=== PATIENT | female | born 1965 | race Caucasian/White ===

== ENCOUNTER 2019-08-27 08:36 | Emergency (ER) | payer MEDICAID, OTHER ==
[~2019-08-27] VITALS: Ht 157 cm; Wt 91.0 kg
[2019-08-27] MEDS ORDERED: LISI2.5T PO (08:50)
[2019-08-27] MEDS ORDERED: LEVO25TA2 PO (08:50)
[2019-08-27] MEDS ORDERED: METF-399 PO (08:50)
[2019-08-27] MEDS ORDERED: INSU100V6 SQ (08:50)
[2019-08-27] MEDS ORDERED: NS IV 1000 ML 1,000 ML IV SCH (09:00)
[2019-08-27 09:10] LABS: HEMOGLOBIN 13.2 G/DL (11.5-16.0); MEAN PLATELET VOLUME 9.7 FL (7.4-10.4); RED CELL DISTRIBUTION WIDTH 13.3 % (10.0-14.5); WHITE BLOOD COUNT 15.3 10^3/uL (4.3-11.0)
--- NOTE | 2019-08-27 09:21 | Diagnostic Imaging Report ---
PROCEDURE: CT head without contrast. TECHNIQUE: Multiple contiguous axial images were obtained through the brain without the use of intravenous contrast. Auto Exposure Controls were utilized during the CT exam to meet ALARA standards for radiation dose reduction. INDICATION: Altered mental status, lethargy. Comparison: None available. Findings: No hyperdense hemorrhage or space-occupying mass. No hydrocephalus or midline shift. The basilar cisterns are normal. Katz-white matter differentiation is well preserved. The mastoid air cells are clear. Paranasal sinuses are normal. No focal osseous abnormality of the calvarium. Impression: No acute intracranial process. Dictated by: Dictated on workstation # [id number]
[2019-08-27 09:26] LABS: CARBON DIOXIDE 22 MMOL/L (21-32); CHLORIDE 97 MMOL/L (98-107); POTASSIUM 3.8 MMOL/L (3.6-5.0); SODIUM 135 MMOL/L (135-145)
[2019-08-27 09:27] LABS: ALANINE AMINOTRANSFERASE 143 U/L (0-55); ALBUMIN 3.6 GM/DL (3.2-4.5); ALKALINE PHOSPHATASE 193 U/L (40-136); BILIRUBIN,TOTAL 0.2 MG/DL (0.1-1.0); BUN/CREATININE RATIO 19; CALCIUM 10.5 MG/DL (8.5-10.1); CREATININE SERUM 1.16 MG/DL (0.60-1.30); GFR ESTIMATED 49; GLUCOSE 113 MG/DL (70-105); MAGNESIUM 1.2 MG/DL (1.6-2.4); TOTAL PROTEIN 6.5 GM/DL (6.4-8.2)
[2019-08-27] MEDS ORDERED: GABA-486 PO (09:27)
[2019-08-27] MEDS ORDERED: BUSP5TAB59 PO (09:27)
--- NOTE | 2019-08-27 09:27 | Diagnostic Imaging Report ---
EXAMINATION: Chest 1 view HISTORY: Altered mental status COMPARISON: None available. FINDINGS: Patient is imaged in the lordotic position. Heart size is accentuated by positioning and portable technique. No pleural effusion or pneumothorax is seen. No edema or pneumonia. IMPRESSION: 1. Clear lungs. Dictated by: Dictated on workstation # [id number]
[2019-08-27] MEDS: MAGNESIUM 1 GM/100 ML IVPB 100 ML IV SCH ×2 (09:50→11:31)
--- OUTSIDE RECORDS SUMMARY | 2019-08-27 10:20 | XMS REPORT | Continuity of Care Document ---
Author Organization Unknown Address Unknown Phone Unavailable Allergies Active Description Code Type Severity Reaction Onset Reported/Identified Relationship to Patient Clinical Status Yes No Known Drug Allergies [id number] Drug Allergy Unknown N/A 08/27/2019 Medications There is no data. Problems There is no data. Procedures There is no data. Results Test Result Range Automated blood complete blood count (he mogram) panel - 08/27/19 08:40 Blood leukocytes automated count (number/volume) 15.3 10*3/uL 4.3-11.0 Blood erythrocytes automated count (number/volume) 4.46 10*6/uL 4.35-5.85 Venous blood hemoglobin measurement (mass/volume) 13.2 g/dL 11.5-16.0 Blood hematocrit (volume fraction) 38 % 35-52 Automated erythrocyte mean corpuscular volume 85 [ foz_us] 80-99 Automated erythrocyte mean corpuscular h emoglobin (mass per erythrocyte) 30 pg 25-34 Automated erythrocyte mean corpuscular h emoglobin concentration measurement (mass/volume) 35 g/dL 32-36 Automated erythrocyte distribution width ratio 13. 3 % 10.0- 14.5 Automated blood platelet count (count/volume) 280 10*3/uL 130-400 Automated blood platelet mean volume measurement 9.7 [foz_us] 7.4-10.4 Comprehensive metabolic panel - 08/27/19 08:40 Serum or plasma sodium measurement (moles/volume) 135 mmol/L 135-145 Serum or plasma potassium measurement (moles/volume) 3.8 mmol/L 3.6-5.0 Serum or plasma chloride measurement (moles/volume) 97 mmol/L 98-107 Carbon dioxide 22 mmol/L 21-32 Serum or plasma anion gap determination (moles/volume) 16 mmol/L 5-14 Serum or plasma urea nitrogen measurement (mass/volume ) 22 mg/dL 7-18 Serum or plasma creatinine measurement (mass/volume) 1.16 mg/dL 0.60-1.30 Serum or plasma urea nitrogen/creatinine mass ratio 19 NRG Serum or plasma creatinine measurement w ith calculation of estimated glomerular filtration rate 49 NRG Serum or plasma glucose measurement (mass/volume) 113 mg/dL 70-105 Serum or plasma calcium measurement (mass/volume) 10.5 mg/dL 8.5-10.1 Serum or plasma total bilirubin measurement (mass/volu me) 0.2 mg/dL 0.1-1.0 Serum or plasma alkaline phosphatase charisse surement (enzymatic activity/volume) 193 U/L 40-136 Serum or plasma aspartate aminotransfera se measurement (enzymatic activity/volume) 173 U/L 5-34 Serum or plasma alanine aminotransferase measurement (enzymatic activity/volume) 143 U/L 0-55 Serum or plasma protein measurement (mass/volume) 6.5 g/dL 6.4-8.2 Serum or plasma albumin measurement (mass/volume) 3.6 g/dL 3.2-4.5 CALCIUM CORRECTED 10.8 mg/dL 8.5-10.1 Magnesium - 08/27/19 08:40 Magnesium 1.2 mg/dL 1.6-2.4 Serum or plasma ethanol measurement (mas s/volume) - 08/27/19 08:40 Serum or plasma ethanol measurement (mass/volume) < mg/dL <10 Blood lactic acid measurement (moles/vol ume) - 08/27/19 09:40 Blood lactic acid measurement (moles/volume) 2.13 mmol/L 0.50-2.00 Encounters ACCT No. Visit Date/Time Discharge Status Pt. Type Provider Facility Loc./Unit Complaint [id number] 08/27/2019 08:40:[address] Emergency LÓPEZ CHRISTOPHER EPPS [facility] FS HYPOTENSION; WEAKNESS
[2019-08-27 11:09] LABS: BACTERIA,URINE TRACE /HPF; BILIRUBIN,URINE NEGATIVE (NEGATIVE); CLARITY,URINE CLEAR; COLOR,URINE YELLOW; GLUCOSE, URINE (UA) NEGATIVE (NEGATIVE); KETONES,URINE NEGATIVE (NEGATIVE); LEUKOCYTE ESTERASE ,URINE 2+ (NEGATIVE); NITRITE,URINE NEGATIVE (NEGATIVE); PH,URINE 5.5 (5-9); PROTEIN,URINE NEGATIVE (NEGATIVE); TRICHOMONAS,URINE FEW /HPF; WBC,URINE 50-100 /HPF
[2019-08-27 11:20] LABS: AMPHETAMINE SCREEN, URINE NEGATIVE (NEGATIVE); BARBITURATE SCREEN URINE NEGATIVE (NEGATIVE); BENZODIAZEPINES SCREEN URINE NEGATIVE (NEGATIVE); CANNABINOID SCREEN, URINE NEGATIVE (NEGATIVE); COCAINE SCREEN URINE NEGATIVE (NEGATIVE); METHADONE STAT NEGATIVE (NEGATIVE); METHAMPHETAMINE SCREEN URINE S NEGATIVE (NEGATIVE); OPIATE SCREEN URINE POSITIVE (NEGATIVE); OXYCODONE STAT NEGATIVE (NEGATIVE); PROPOXYPHENE STAT NEGATIVE (NEGATIVE); TRICYCLIC ANTIDEPRESSANTS SCRE POSITIVE (NEGATIVE)
[2019-08-27] MEDS ORDERED: CEPH-507 PO (11:42)
[2019-08-27] MEDS ORDERED: cefTRIAXone FOR IV USE 2,000 MG in WATER (STERILE) FOR INJECTION 20 ML IV ONE (11:45)
--- NOTE | 2019-08-27 11:50 | ED General ---
General Chief Complaint: Neuro-Stroke Like Symptoms Stated Complaint: HYPOTENSION; WEAKNESS Nursing Triage Note: Patient brought by EMS with concern of AMS, hypotension and hypoglycemia. Last known well time per EMS was 1200 on 08/26/2019. Family activated EMS today as patient had difficulty waking up. Nursing Sepsis Screen: No Definite Risk Source of Information: Patient History of Present Illness Date Seen by Provider: August 27, 2019 Time Seen by Provider: 08:40 Initial Comments Patient is a 53-year-old female presents with generalized weakness, malaise, dizziness confusion. Symptoms have been ongoing for the past several weeks to months. Patient is alert and oriented to person place and year but is confused to month. She denies headache, blurred vision, fever chills, cough, sore throat, chest pain, shortness of breath, urinary frequency urgency or dysuria. Reports chronic leg and back pain history of neuropathy. No focal neurologic deficits. States her blood sugars ran or than 400 yesterday but over normal today. She is compliant with her insulin and last took Lantus last evening. Last ate last evening at dinnertime. No other acute symptoms or complaints. Patient noted be hypotensive mildly tachycardic on ED arrival. Timing/Duration: 12 Hours, Changing Over Time, Intermittent Severity: Moderate Modifying Factors: improves with Rest Associated Systoms: Weakness Allergies and Home Medications Allergies Coded Allergies: No Known Drug Allergies (Unverified , 08/27/19) Home Medications Cephalexin 500 Mg Capsule, 500 MG PO TID Prescribed by: CHRISTOPHER LÓPEZ on 08/27/19 1142 Gabapentin 100 Mg Capsule, 100 MG PO Q8H, (Reported) Lisinopril 2.5 Mg Tablet, 2.5 MG PO DAILY, (Reported) Patient Home Medication List Home Medication List Reviewed: Yes Review of Systems Review of Systems Constitutional: see HPI EENTM: no symptoms reported Respiratory: no symptoms reported, see HPI Cardiovascular: no symptoms reported, see HPI Gastrointestinal: no symptoms reported Genitourinary: no symptoms reported Musculoskeletal: see HPI Skin: no symptoms reported Psychiatric/Neurological: Paresthesia Hematologic/Lymphatic: See HPI Immunological/Allergic: see HPI Past Omvcuda-Hdjxlh-Zpzhoc Hx Past Med/Social Hx: Reviewed Nursing Past Med/Soc Hx Patient Social History Alcohol Use: Denies Use Recreational Drug Use: No Smoking Status: Never a Smoker Recent Foreign Travel: No Contact w/Someone Who Travel: No Recent Infectious Disease Expo: No Physical Abuse: No Sexual Abuse: No Mistreated: No Fear: No Past Medical History Surgeries: Yes Section, Gallbladder, Orthopedic Respiratory: No Cardiac: Yes High Cholesterol, Hypertension Neurological: No Genitourinary: No Musculoskeletal: Yes Chronic Back Pain Endocrine: Yes Hypothyroidsim, Diabetes, Non-Insulin dep Integumentary: No Physical Exam Vital Signs Vital Signs - First Documented 08/27/19 08:42 Temp 36.1 Pulse 101 Resp 15 B/P (MAP) 123/70 (87) Pulse Ox 98 O2 Delivery Room Air Capillary Refill : Less Than 3 Seconds Height, Weight, BMI Height: '" Weight: lbs. oz. kg; 36.00 BMI Method: General Appearance: No Apparent Distress, WD/WN Eyes: Bilateral Eye Normal Inspection, Bilateral Eye PERRL, Bilateral Eye EOMI HEENT: PERRL/EOMI, Pharynx Normal, Pale Conjunctivae (R), Pharyngeal Erythema Neck: Full Range of Motion, Normal Inspection, Supple Respiratory: Chest Non Tender, Lungs Clear Cardiovascular: Regular Rate, Rhythm, No Edema Gastrointestinal: Normal Bowel Sounds, Non Tender, Soft Back: Normal Inspection, No CVA Tenderness Neurologic/Psychiatric: Alert, Oriented x3, manufacturers service representative II-XII Norm as Tested Skin: Normal Color, Warm/Dry Focused Exam Sepsis Stage: Ruled Out Possible Source: Genitouriary Lactate Level 08/27/19 09:40: Lactic Acid Level 2.13*H 08/27/19 11:40: Time of Focused Exam: 08:45 Lactic Acid Level Laboratory Tests Test 08/27/19 09:40 08/27/19 11:40 Lactic Acid Level 2.13 MMOL/L (0.50-2.00) *H Progress/Results/Core Measures Suspected Sepsis Recent Fever Within 48 Hours: No Infection Criteria Present: None New/Unexplained Altered Menta: Yes Sepsis Screen: No Definite Risk SIRS Temperature: Pulse: 101 Respiratory Rate: 15 Laboratory Tests 08/27/19 08:40: White Blood Count 15.3H Blood Pressure 123 /70 Mean: 87 08/27/19 09:40: Lactic Acid Level 2.13*H 08/27/19 11:40: Laboratory Tests 08/27/19 08:40: Creatinine 1.16, Platelet Count 280, Total Bilirubin 0.2 Results/Orders Lab Results Laboratory Tests Test 08/27/19 08:40 08/27/19 09:40 08/27/19 10:55 08/27/19 11:40 Range/Units White Blood Count 15.3 H 4.3-11.0 10^3/uL Red Blood Count 4.46 4.35-5.85 10^6/uL Hemoglobin 13.2 11.5-16.0 G/DL Hematocrit 38 35-52 % Mean Corpuscular Volume 85 80-99 FL Mean Corpuscular Hemoglobin 30 25-34 PG Mean Corpuscular Hemoglobin Concent 35 32-36 G/DL Red Cell Distribution Width 13.3 10.0-14.5 % Platelet Count 280 130-400 10^3/uL Mean Platelet Volume 9.7 7.4-10.4 FL Sodium Level 135 135-145 MMOL/L Potassium Level 3.8 3.6-5.0 MMOL/L Chloride Level 97 L 98-107 MMOL/L Carbon Dioxide Level 22 21-32 MMOL/L Anion Gap 16 H 5-14 MMOL/L Blood Urea Nitrogen 22 H 7-18 MG/DL Creatinine 1.16 0.60-1.30 MG/DL Estimat Glomerular Filtration Rate 49 BUN/Creatinine Ratio 19 Glucose Level 113 H 70-105 MG/DL Calcium Level 10.5 H 8.5-10.1 MG/DL Corrected Calcium 10.8 H 8.5-10.1 MG/DL Magnesium Level 1.2 L 1.6-2.4 MG/DL Total Bilirubin 0.2 0.1-1.0 MG/DL Aspartate Amino Transf (AST/SGOT) 173 H 5-34 U/L Alanine Aminotransferase (ALT/SGPT) 143 H 0-55 U/L Alkaline Phosphatase 193 H 40-136 U/L Total Protein 6.5 6.4-8.2 GM/DL Albumin 3.6 3.2-4.5 GM/DL Serum Alcohol < 10 <10 MG/DL Lactic Acid Level 2.13 *H 0.50-2.00 MMOL/L Urine Color YELLOW Urine Clarity CLEAR Urine pH 5.5 5-9 Urine Specific [place] 1.015 L 1.016-1.022 Urine Protein NEGATIVE NEGATIVE Urine Glucose (UA) NEGATIVE NEGATIVE Urine Ketones NEGATIVE NEGATIVE Urine Nitrite NEGATIVE NEGATIVE Urine Bilirubin NEGATIVE NEGATIVE Urine Urobilinogen 0.2 < = 1.0 MG/DL Urine Leukocyte Esterase 2+ H NEGATIVE Urine RBC (Auto) NEGATIVE NEGATIVE Urine RBC NONE /HPF Urine WBC 50-100 H /HPF Urine Squamous Epithelial Cells 5-10 /HPF Urine Crystals NONE /LPF Urine Bacteria TRACE /HPF Urine Casts NONE /LPF Urine Mucus NEGATIVE /LPF Urine Trichomonas FEW H /HPF Urine Culture Indicated YES Urine Opiates Screen POSITIVE H NEGATIVE Urine Oxycodone Screen NEGATIVE NEGATIVE Urine Methadone Screen NEGATIVE NEGATIVE Urine Propoxyphene Screen NEGATIVE NEGATIVE Urine Barbiturates Screen NEGATIVE NEGATIVE Ur Tricyclic Antidepressants Screen POSITIVE H NEGATIVE Urine Phencyclidine Screen NEGATIVE NEGATIVE Urine Amphetamines Screen NEGATIVE NEGATIVE Urine Methamphetamines Screen NEGATIVE NEGATIVE Urine Benzodiazepines Screen NEGATIVE NEGATIVE Urine Cocaine Screen NEGATIVE NEGATIVE Urine Cannabinoids Screen NEGATIVE NEGATIVE My Orders Orders - CHRISTOPHER LÓPEZ DO Cbc No Diff (08/27/19 08:58) Comprehensive Metabolic Panel (08/27/19 08:58) Thyroid Stimulating Hormone (08/27/19 08:58) Ua Culture If Indicated (08/27/19 08:58) Chest 1 View Ap/Pa Only (08/27/19 08:58) Drug Screen Stat (Urine) (08/27/19 08:58) Alcohol (08/27/19 08:58) Lactic Acid Analyzer (08/27/19 08:58) Blood Culture (08/27/19 08:58) Ct Head Wo (08/27/19 08:58) Ns Iv 1000 Ml (Sodium Chloride 0.9%) (08/27/19 09:00) Magnesium (08/27/19 09:03) Magnesium 1 Gm/100 Ml Ivpb (Magnesium Tripathi (08/27/19 09:45) Urine Culture (08/27/19 10:55) Ceftriaxone For Iv Use (Rocephin For I (08/27/19 11:45) Vital Signs/I&O 08/27/19 08:42 Temp 36.1 Pulse 101 Resp 15 B/P (MAP) 123/70 (87) Pulse Ox 98 O2 Delivery Room Air Capillary Refill : Less Than 3 Seconds Blood Pressure Mean: 87 Departure Communication (Admissions) IVF and abx given. BP improved, confusion resolved. Patient A&Ox3. suspect some earlier confusion related to opiates. UDS +. Will dc with watchful waiting, supportive care and PCP follow-up. Return precautions reviewed. She verbalizes understanding. Discharge instructions prior to departure. Impression Primary Impression: Urinary tract infection Additional Impression: Weakness Disposition: HOME, SELF-CARE Condition: Improved Departure-Patient Inst. Patient Instructions: Urinary Tract Infection, Adult (DC) Add. Discharge Instructions: Please increase fluids and take newly prescribed medications as directed. Follow up with your PCP for urine culture result. All discharge instructions reviewed with patient and/or family. Voiced understanding. Scripts Cephalexin (Keflex) 500 Mg Capsule 500 MG PO TID, #30 CAP Prov: CHRISTOPHER LÓPEZ DO 08/27/19 CHRISTOPHER LÓPEZ DO August 27, 2019 11:50
[2019-08-27 12:01] VITALS: BP 102/68
== END 2019-08-27 12:11 | disposition home or self-care (01) ==
LOC: ER FS 08:40
DX: N39.0 Urinary tract infection, site not specified (principal); I10 Essential (primary) hypertension; E11.9 Type 2 diabetes mellitus without complications; Z79.4 Long term (current) use of insulin
CPT/HCPCS: 36415; 70450; 71045; 80053; 80306; 80320; 81000; 83605; 83735; 84443; 85027; 87040; 87088

== ENCOUNTER → 2021-08-24 | Outpatient (CLI) | payer MEDICAID ==
[~2021-08-24] MED LIST: BUSP5TAB59 PO; CEPH-507 PO; GABA-486 PO; INSU100V6 SQ; LEVO25TA2 PO; LISI2.5T13 PO; METF-399 PO
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
== END ==
LOC: RAD FS 10:38
PROVIDERS: ATTEND Nurse Practitioner
DX: M54.2 Cervicalgia (principal); Z98.1 Arthrodesis status; Z98.890 Other specified postprocedural states
CPT/HCPCS: 72050

== ENCOUNTER → 2022-06-14 | Outpatient (CLI) | payer MEDICARE, MEDICAID ==
[~2022-06-14] MED LIST changes: +BARIUM for suspension 96% w/w (Vanilla Silq Medium Density) PO ONE; +BARIUM for suspension 98% w/w (Vanilla Silq High Density) PO ONE
--- NOTE | 2022-06-14 21:22 | Diagnostic Imaging Report ---
INDICATION: Hoarseness. EXAMINATION: Esophagram at 1144. FINDINGS: The preliminary films of the neck, chest and abdomen show no sign of an acute abnormality. A double contrast study was performed. The patient swallowed the contrast material without difficulty. There was no delay or obstruction to passage of the contrast through the esophagus. There is no mass or stricture identified. There was a small sliding hiatal hernia but there is no evidence for reflux. The stomach was difficult to evaluate as there did appear to be particulate matter within the stomach. The stomach did not show very good distensibility or motility. The reason for this is not certain. There is no mass or ulceration identified. The duodenal bulb and proximal small bowel are unremarkable. IMPRESSION: 1. There is a small sliding hiatal hernia but there is no evidence for reflux. 2. There is no mass or stricture involving the esophagus. 3. The stomach is difficult to evaluate due to the presence of particulate matter. The stomach motility did seem sluggish. There is no mass or ulceration identified. If further evaluation is desired, then endoscopy would be recommended. Dictated on workstation # [id number]
== END ==
LOC: RAD 11:21
PROVIDERS: ATTEND Otolaryngology Otolaryngology/Facial Plastic Surgery
DX: K44.9 Diaphragmatic hernia without obstruction or gangrene (principal); Z80.2 Family history of malignant neoplasm of other respiratory and intrathoracic organs
CPT/HCPCS: 74220

== ENCOUNTER → 2022-06-17 | Outpatient (CLI) | payer MEDICARE, MEDICAID ==
[~2022-06-17] MED LIST changes: -BARIUM for suspension 96% w/w (Vanilla Silq Medium Density) PO ONE; -BARIUM for suspension 98% w/w (Vanilla Silq High Density) PO ONE; +CATHETER FLUSH 10 ML SYR IV PRN; +HOLD METFORMIN - RECEIVED CONTRAST 20 ML VIAL IV SCH; +IOHEXOL 350 MG/ML 100 ML (OMNIPAQUE 350) VIAL IV ONE; +NS 100 ML (IVPB) BAG IV ONE
[2022-06-17 11:43] LABS: CREATININE SERUM 1.29 MG/DL (0.60-1.30)
--- NOTE | 2022-06-17 13:18 | Diagnostic Imaging Report ---
PROCEDURE: CT neck soft tissue with contrast. TECHNIQUE: Multiple contiguous axial images were obtained through the neck after the administration of contrast. Auto Exposure Controls were utilized during the CT exam to meet ALARA standards for radiation dose reduction. INDICATION: Difficulty swallowing. Raspy speech. COMPARISON: None. FINDINGS: The posterior nasopharynx and oropharynx demonstrate appropriate symmetry. There is no displacement of the parapharyngeal fat planes. There is no abnormal process evident within the prevertebral or retropharyngeal space. There is no evidence of abnormal thickening of the epiglottis or aryepiglottic folds. The vocal folds appear symmetric. The parotid and submandibular glands are unremarkable. The thyroid is either absent or severely atrophic. Mildly prominent lymph nodes are seen in the neck, the largest in the right level 3 station measuring 0.8 cm in short axis. No focal inflammatory changes are demonstrated. No soft tissue mass or fluid collection demonstrated. The vascular structures the neck demonstrate no evidence of high-grade stenosis on this nondedicated exam. The visualized lung apices are clear. There is partial visualization of a pericardial effusion. The visualized intracranial contents demonstrate no evidence of pathologic intracranial enhancement or intracranial mass effect. Visualized orbital contents are unremarkable. The visualized paranasal sinuses are clear. The mastoids and middle ears are clear. Posterior fusion is visualized from C5 to C7. No acute fracture. The craniocervical junction is intact. IMPRESSION: 1. No discrete mass or fluid collection in the aerodigestive tract. If symptoms persist consider direct visualization to further evaluate. 2. Mildly prominent cervical lymph nodes, largest in the right level 3 station. No obvious pathologically enlarged lymphadenopathy is seen. Followup could be considered. 3. No airway compromise. 4. Partially visualized pericardial effusion. Dictated by: Dictated on workstation # [id number]
== END ==
LOC: RAD 11:15
PROVIDERS: ATTEND Otolaryngology Otolaryngology/Facial Plastic Surgery
DX: R59.0 Localized enlarged lymph nodes (principal); I31.39 Other pericardial effusion (noninflammatory); Z80.1 Family history of malignant neoplasm of trachea, bronchus and lung
CPT/HCPCS: 70491; 82565; 84520

== ENCOUNTER 2022-09-19 09:04 | Outpatient (CLI) | payer MEDICARE, MEDICAID ==
[~2022-09-19] VITALS: Ht 157.5 cm; Wt 102.3 kg
[~2022-09-19 09:04] MED LIST changes: -CATHETER FLUSH 10 ML SYR IV PRN; -HOLD METFORMIN - RECEIVED CONTRAST 20 ML VIAL IV SCH; -IOHEXOL 350 MG/ML 100 ML (OMNIPAQUE 350) VIAL IV ONE; -NS 100 ML (IVPB) BAG IV ONE
[2022-09-19] MEDS ORDERED: CYCL10TA25 PO (11:11)
[2022-09-19] MEDS ORDERED: LISI20TA26 PO (11:11)
[2022-09-19] MEDS ORDERED: PREG150C46 PO (11:11)
[2022-09-19] MEDS ORDERED: RT-ALBUINH INH (11:11)
[2022-09-19] MEDS ORDERED: ROSU10TA28 PO (11:11)
[2022-09-19] MEDS ORDERED: FURO20TA4 PO (11:11)
[2022-09-19] MEDS ORDERED: DAPA1TAB5 PO (11:11)
[2022-09-19] MEDS ORDERED: SEMA0.25 SQ (11:11)
== END 2022-09-19 11:19 | disposition home or self-care (01) ==
LOC: PREOP 09:04
PROVIDERS: ATTEND Surgery
DX: Z01.818 Encounter for other preprocedural examination (principal)

== ENCOUNTER 2022-09-30 09:21 | Day surgery (SDC) | payer MEDICARE, MEDICAID ==
[~2022-09-30] VITALS: Ht 157.5 cm; Wt 102.3 kg
[~2022-09-30 09:21] MED LIST changes: +CYCL10TA25 PO; +DAPA1TAB5 PO; +FURO20TA4 PO; +LISI20TA26 PO; +PREG150C46 PO; +ROSU10TA28 PO; +RT-ALBUINH INH; +SEMA0.25 SQ
[2022-09-30] MEDS ORDERED: DEXTROSE 50% 50 ML (IMS) SYR ONE (10:06)
[2022-09-30] MEDS ORDERED: LACTATED RINGERS 1,000 ML IV STA (10:07)
[2022-09-30] MEDS ORDERED: HURRICAINE EXT TUBE (BENZOCAINE) XX PRN (10:15)
[2022-09-30] MEDS ORDERED: DEXTROSE 50% 50 ML (IMS) SYR IV ONE (10:15)
[2022-09-30 10:25] VITALS: BP 122/76
--- NOTE | 2022-09-30 10:30 | Progress Note-Pre Operative ---
Pre-Operative Progress Note Date of Available H&P: Sep 17, 2022 Date H&P Reviewed: Sep 30, 2022 Time H&P Reviewed: 10:27 History & Physical: H&P Reviewed, Patient Examed, No changes noted Pre-Operative Diagnosis: Dysphagia, Screening RASHEEDA COSTA DO Sep 30, 2022 10:30
[2022-09-30] MEDS ORDERED: MIDAZOLAM 2 MG/2 ML (VERSED) VIAL ONE (11:15)
[2022-09-30] MEDS ORDERED: PROPOFOL INJECTION 50 ML IV ONE (11:15)
[2022-09-30 11:40] VITALS: BP 110/63
--- NOTE | 2022-09-30 11:49 | Progress Note-Post Operative ---
Post-Operative Progess Note Surgeon (s)/Hair Colorist (s) Surgeon RASHEEDA COSTA DO Hair Colorist: none Pre-Operative Diagnosis Dysphagia, Screening Post-Operative Diagnosis Gastritis Hiatal Hernia Esophagitis Poor prep Procedure & Operative Findings Date of Procedure 09/30/22 Procedure Performed/Findings EGD with biopsy Colonoscopy cut short PROCEDURE NOTE: After informed consent was obtained, the patient was brought to the endoscopy suite, placed in bed in left lateral decubitus position. She was administered IV sedation by the STOCK CUTTER who then monitored vitals the entire time, heart rate, blood pressure and pulse ox and the scope was inserted down the mouth through the esophagus into the stomach. On the way down, noted some moderate esophagitis, took a picture, pushed into the stomach, pushed past the antrum into the duodenum. Duodenum looked good. Pulled back and did a biopsy of antrum, then retroflexed the scope, saw small hiatal hernia, took a picture of this and then pulled the scope into the GE junction, took another picture of the hiatal hernia and then did a biopsy of the GE junction. Pushed the scope back into the stomach, suctioned all the air out of the stomach. At this point pulled the scope up the esophagus and found another area of esophagitis in the upper third portion. I took a picture and then did a biopsy of this. Finally pulled the scope out of the mouth. Switched camera, switched gloves, went down below and started the colonoscopy. Unfortunately, immediately encountered formed stool completely covering the streeter. I tried pushing past this into the Sigmoid and still found thick stool. At this point I elected to quit and pulled the scope out. The patient tolerated the procedure and she recovered in the endoscopy suite. Recommended for repeat colonoscopy in a couple of months. Anesthesia Type IV sedation by STOCK CUTTER Estimated Blood Loss Estimated blood loss (mL): scant Specimens/Packing Specimens Removed antral bx body of stomach bx Cardia bx GE jxn bx x 2 upper esophagus bx RASHEEDA COSTA DO Sep 30, 2022 11:49
--- NOTE | 2022-09-30 11:51 | Endoscopy Discharge Instruct ---
Endo Procedure/Findings Findings 1.: Gastritis 2.: Hiatal Hernia 3.: Case's Esophagus 4.: Other Findings (Poor Prep) Discharge Instructions - Activity: You might feel a little sleepy until tomorrow. This is due to the me dicine you received to relax you. Until tomorrow, you should: NOT drive a car, operate machinery or power tools. NOT drink any alcoholic beverages. NOT make any important decisions or sign importortant papers. Do not return to work until tomorrow, unless otherwise instructed. Resume previous activities tomorrow. Diet: Start by taking liquids. If you tolerate liquids, advance to solid food. 1.: EGD in 1 year 2.: Other Recommendation (Colonoscopy in a couple of months) Notify Physician - If you experience excessive bleeding, unusual abdominal pain, fever, or chest pain, contact your doctor immediately. Follow-Up: Other Follow up in my office in a week RASHEEDA COSTA DO Sep 30, 2022 11:51
--- NOTE | 2022-09-30 12:06 | Anesthesia-General Post-Op ---
MAC Patient Condition Mental Status/LOC: Same as Preop Cardiovascular: Satisfactory Nausea/Vomiting: Absent Respiratory: Satisfactory Pain: Controlled Complications: Absent Post Op Complications Complications None Follow Up Care/Instructions Patient Instructions None needed. Anesthesiology Discharge Order Discharge Order Patient is doing well, no complaints, stable vital signs, no apparent adverse anesthesia problems. No complications reported per nursing. NAOMI ABREU CRNA Sep 30, 2022 12:06
[2022-09-30 12:09] VITALS: BP 117/65
[2022-09-30 13:20] VITALS: BP 134/89
== END 2022-09-30 13:20 | disposition home or self-care (01) ==
LOC: ENDO 09:21
PROVIDERS: ATTEND Surgery
DX: Z12.11 Encounter for screening for malignant neoplasm of colon (principal); K29.50 Unspecified chronic gastritis without bleeding; K22.70 Barrett's esophagus without dysplasia; K20.90 Esophagitis, unspecified without bleeding; K59.09 Other constipation; K44.9 Diaphragmatic hernia without obstruction or gangrene; Z79.899 Other long term (current) drug therapy
CPT/HCPCS: 82947; 88305

== ENCOUNTER 2022-11-13 05:32 | Outpatient (CLI) | payer MEDICARE, MEDICAID ==
[~2022-11-13] VITALS: Ht 157.5 cm; Wt 101.2 kg
[2022-11-14] MEDS ORDERED: LEVO100C4 PO (09:16)
[2022-11-14] MEDS ORDERED: ASPI-1238 PO (09:16)
== END 2022-11-14 09:17 | disposition home or self-care (01) ==
LOC: PREOP 05:32
PROVIDERS: ATTEND Surgery
DX: Z01.818 Encounter for other preprocedural examination (principal)

== ENCOUNTER 2022-11-25 07:50 | Day surgery (SDC) | payer MEDICARE, MEDICAID ==
[~2022-11-25] VITALS: Ht 157.5 cm; Wt 101.2 kg
[~2022-11-25 07:50] MED LIST changes: +ASPI-1238 PO; +LEVO100C4 PO
[2022-11-25] MEDS ORDERED: LACTATED RINGERS 1,000 ML 1,000 ML IV STA (07:56)
[2022-11-25] MEDS ORDERED: MIDAZOLAM INJ 2 MG/2 ML VIAL ONE (08:10)
[2022-11-25 08:29] VITALS: BP 165/99
[2022-11-25 09:01] VITALS: BP 131/57
--- NOTE | 2022-11-25 09:01 | Progress Note-Post Operative ---
Post-Operative Progess Note Surgeon (s)/Kiln Tender (s) Surgeon RASHEEDA COSTA DO Kiln Tender: FUNMI Arrington Pre-Operative Diagnosis Screening, Hx of poor prep Post-Operative Diagnosis Poor prep Procedure & Operative Findings Date of Procedure 11/25/22 Procedure Performed/Findings Colonoscopy cut short PROCEDURE NOTE: After informed consent was obtained, the patient was brought to the endoscopy suite, placed in bed in left lateral decubitus position. She was administered IV sedation by the PERMANENT WAVER who then monitored her vitals the entire time, heart rate, blood pressure and pulse ox and the scope was inserted. Unfortunately, immediately upon entering encountered fully formed stool. I pushed in about 50cm and continued to see formed stool. I got to the splenic flexure and elected to stop. Pulled out slowly. The patient tolerated the procedure. She was recovered in endoscopy suite. Recommended for repeat colonoscopy, possibly tomorrow. Anesthesia Type IV sedation by PERMANENT WAVER Estimated Blood Loss Estimated blood loss (mL): none Specimens/Packing Specimens Removed none RASHEEDA COSTA DO Nov 25, 2022 09:01
--- NOTE | 2022-11-25 09:03 | Endoscopy Discharge Instruct ---
Endo Procedure/Findings Findings 1.: Other Findings (poor prep) Discharge Instructions - Activity: You might feel a little sleepy until tomorrow. This is due to the medicine you received to relax you. Until tomorrow, you should: NOT drive a car, operate machinery or power tools. NOT drink any alcoholic beverages. NOT make any important decisions or sign importortant papers. Do not return to work until tomorrow, unless otherwise instructed. Resume previous activities tomorrow. Diet: Start by taking liquids. If you tolerate liquids, advance to solid food. 1.: Other Recommendation (Colonoscopy possibly tomorrow) Notify Physician - If you experience excessive bleeding, unusual abdominal pain, fever, or chest pain, contact your doctor immediately. Follow-Up: Other Follow up in one week RASHEEDA COSTA DO Nov 25, 2022 09:03
[2022-11-25 09:05] VITALS: BP 126/61
[2022-11-25 09:20] VITALS: BP 126/61
[2022-11-25 09:50] VITALS: BP 134/76
--- NOTE | 2022-11-25 12:31 | Anesthesia-General Post-Op ---
MAC Patient Condition Mental Status/LOC: Same as Preop Cardiovascular: Satisfactory Nausea/Vomiting: Absent Respiratory: Satisfactory Pain: Controlled Complications: Absent Post Op Complications Complications None Follow Up Care/Instructions Patient Instructions None needed. Anesthesiology Discharge Order Discharge Order Patient is doing well, no complaints, stable vital signs, no apparent adverse anesthesia problems. No complications reported per nursing. NAOMI ABREU CRNA Nov 25, 2022 12:30
== END 2022-11-25 09:50 | disposition home or self-care (01) ==
LOC: ENDO 07:50
PROVIDERS: ATTEND Surgery
DX: Z12.11 Encounter for screening for malignant neoplasm of colon (principal); E66.9 Obesity, unspecified; Z68.41 Body mass index [BMI] 40.0-44.9, adult
CPT/HCPCS: 82947